=== PATIENT | male | born 1985 | race American Indian/Alaskan Native ===

== ENCOUNTER 2016-05-20 09:46 | Emergency (ER) | payer SELFPAY ==
[2016-05-20 10:00] VITALS: BP 150/113
--- NOTE | 2016-05-20 10:31 | Emergency Department Report ---
Chief Complaint: Chest Pain Stated Complaint: CHEST PAIN/BLURRED VISION/SOB Time Seen by Provider: 05/20/16 10:30 - HPI History of Present Illness: Patient here complaining of chest pain and headache that started this morning.Chest pain feels like somebody's is crushing his chest and headache is achy in the front of his head. Denies any radiation. Pain is located to midsternal.. Patient said he doesn't have any medical problems but he does have family history of high blood pressure. He also complains of blurred vision. He reports some shortness of breath. Eyes any nausea vomiting. Denies any cough. - ROS Review of Systems: All systems are negative unless stated in HPI above. - Exam Vital Signs: Vital Signs 05/20/16 09:57 Temperature 98.4 F Pulse Rate 71 Respiratory 22 Rate Blood Pressure 150/113 O2 Sat by Pulse 100 Oximetry Physical Exam: General: This is a 31 yo male well-nourished well-developed nontoxic in appearance. CV: S1, S2. Regular rate and rhythm. Blood pressure is 150/113 Lungs: Clear to auscultate bilaterally. No rhonchi wheezes or rales. MSE screening note: Focused history and physical exam performed. Due to findings the following was ordered:see mdm ED Medical Decision Making - Medical Decision Making Medical decision making: Patient seen by provider in triage area. Appropriate protocol activated and patient to main ED to be seen by physician. ED Disposition for MSE Condition: Stable
[2016-05-20 10:59] LABS: Basophils % (Auto) 0.4 % (0.0-1.8); Eosinophils % (Auto) 2.2 % (0.0-4.3); Hematocrit 41.1 % (35.5-45.6); Hemoglobin 13.7 gm/dl (11.8-15.2); Mean Corpuscular HGB Conc 33 % (32-34); Mean Corpuscular Hemoglobin 28 pg (28-32); Mean Corpuscular Volume 84 fl (84-94); Platelet Count 163 K/mm3 (140-440); Red Blood Count 4.87 M/mm3 (3.65-5.03); Red Cell Distribution Width 14.9 % (13.2-15.2); White Blood Count 4.2 K/mm3 (4.5-11.0)
[2016-05-20 11:14] LABS: Anion Gap 15 mmol/L; Blood Urea Nitrogen 18 mg/dL (9-20); Calcium 8.9 mg/dL (8.4-10.2); Carbon Dioxide 25 mmol/L (22-30); Chloride 104.9 mmol/L (98-107); Creatine Kinase MB 4.7 ng/mL (0.0-4.0); Glucose 94 mg/dL (75-100); Potassium 4.3 mmol/L (3.6-5.0); Sodium 141 mmol/L (137-145)
[2016-05-20 12:12] LABS: Bilirubin,Urine NEG (Negative); Blood,Urine NEG (Negative); Ketones,Urine NEG (Negative); Leukocyte Esterase,Urine MOD (Negative); Mucus,Urine FEW /HPF; Nitrite,Urine NEG (Negative); Protein,Urine <15 mg/dL mg/dL (Negative); Urobilinogen,Urine < 2.0 mg/dL (<2.0)
--- NOTE | 2016-05-21 01:04 | ED Elopement Review ---
ED Pt Elopement review - Results review Lab results: Laboratory Tests 05/20/16 05/20/16 05/20/16 10:51 10:51 10:51 WBC 4.2 L RBC 4.87 Hgb 13.7 Hct 41.1 MCV 84 MCH 28 MCHC 33 RDW 14.9 Plt Count 163 Lymph % (Auto) 44.1 H [place] % (Auto) 7.5 H Eos % (Auto) 2.2 Baso % (Auto) 0.4 Lymph # 1.9 [place] # 0.3 Eos # 0.1 Baso # 0.0 Seg Neutrophils % 45.8 Seg Neutrophils # 1.9 Sodium 141 Potassium 4.3 Chloride 104.9 Carbon Dioxide 25 Anion Gap 15 BUN 18 Creatinine 0.9 Estimated GFR > 60 BUN/Creatinine Ratio 20.00 Glucose 94 Calcium 8.9 Total Creatine Kinase 416 H CK-MB (CK-2) 4.7 H CK-MB (CK-2) Rel Index 1.1 Troponin T < 0.010 Urine Color Urine Turbidity Urine pH Ur Specific [place] Urine Protein Urine Glucose (UA) Urine Ketones Urine Blood Urine Nitrite Urine Bilirubin Urine Urobilinogen Ur Leukocyte Esterase Urine WBC (Auto) Urine RBC (Auto) U Epithel Cells (Auto) Calcium Oxalate Crystal Urine Mucus 05/20/16 11:21 WBC RBC Hgb Hct MCV MCH MCHC RDW Plt Count Lymph % (Auto) [place] % (Auto) Eos % (Auto) Baso % (Auto) Lymph # [place] # Eos # Baso # Seg Neutrophils % Seg Neutrophils # Sodium Potassium Chloride Carbon Dioxide Anion Gap BUN Creatinine Estimated GFR BUN/Creatinine Ratio Glucose Calcium Total Creatine Kinase CK-MB (CK-2) CK-MB (CK-2) Rel Index Troponin T Urine Color Yellow Urine Turbidity Clear Urine pH 5.0 Ur Specific [place] 1.019 Urine Protein <15 mg/dl Urine Glucose (UA) Neg Urine Ketones Neg Urine Blood Neg Urine Nitrite Neg Urine Bilirubin Neg Urine Urobilinogen < 2.0 Ur Leukocyte Esterase Mod Urine WBC (Auto) 5.0 Urine RBC (Auto) 1.0 U Epithel Cells (Auto) 1.0 Calcium Oxalate Crystal 3+ Urine Mucus Few - Call Back decision Pt Call Back Decision: Call pt to return to ED [facility] (chest pain should be further evaluated)
== END 2016-05-20 11:25 | disposition left against medical advice (07) ==
LOC: ED 09:46
DX: R07.89 Other chest pain (principal); R51 Headache; H53.8 Other visual disturbances; R06.02 Shortness of breath; Z53.21 Procedure and treatment not carried out due to patient leaving prior to being seen by health care provider
CPT/HCPCS: 36415; 80048; 81001; 82550; 82553; 84484; 85025; 93005; 93010

== ENCOUNTER 2017-06-02 07:50 | Emergency (ER) | payer SELFPAY ==
--- NOTE | 2017-06-02 11:25 | Emergency Department Report ---
ED Animal Bite HPI - General Chief Complaint: Animal Bite Stated Complaint: DOG BITE Time Seen by Provider: 06/02/17 11:06 Source: patient Mode of arrival: Ambulatory Limitations: No Limitations - History of Present Illness Initial Comments: Patient is a 32-year-old male who presents to ED complaining of dog bite to the right palm. Patient states around 6:45 AM this morning he was walking to work when a pitbull started chasing him. Patient states that the knee. Bone negative his palm before he jumped onto a car and prevent the dog from attacking him. Patient states that the dog belongs D neighbors and he does not note status of the dog's vaccinations. Patient states his tetanus vaccine has been greater than 10 years ago. Patient states that he did sustain an abrasion to his right palm from the dog knicking him. He denies fevers/chills/nausea/vomiting symptoms the pain MD Complaint: animal bite Right: Hand Animal: dog Animal Control Notified: Yes Mechanism: scratch Associated Symptoms: denies: erythema, discharge from wound, chills, rash, loss of consciousness - Related Data Patient Tetanus UTD: No Previous Rx's Medication Instructions Recorded Last Taken Type Hydrochlorothiazide [HCTZ] 25 mg PO QDAY #30 tablet 08/25/15 Unknown Rx Clindamycin [Clindamycin CAP] 300 mg PO Q8H #21 cap 06/02/17 Unknown Rx Ibuprofen [Motrin] 600 mg PO Q8H PRN #30 tablet 06/02/17 Unknown Rx Sulfamethoxazole/Trimethoprim 1 each PO BID #14 tablet 06/02/17 Unknown Rx [Bactrim DS TAB] Allergies Allergy/AdvReac Type Severity Reaction Status Date / Time Penicillins Allergy Swelling Verified 06/02/17 08:42 ED Review of Systems ROS: Stated complaint: DOG BITE Other details as noted in HPI Constitutional: denies: chills, fever Eyes: denies: eye pain, eye discharge, vision change ENT: denies: ear pain, throat pain Respiratory: denies: cough, shortness of breath, wheezing Cardiovascular: denies: chest pain, palpitations Endocrine: no symptoms reported Gastrointestinal: denies: abdominal pain, nausea, diarrhea Genitourinary: denies: urgency, dysuria Musculoskeletal: denies: back pain, joint swelling, arthralgia Skin: denies: rash, lesions Neurological: denies: headache, weakness, paresthesias Psychiatric: denies: anxiety, depression Hematological/Lymphatic: denies: easy bleeding, easy bruising ED Past Medical Hx - Past Medical History Previous Medical History?: Yes Hx Hypertension: No Hx CVA: No Hx Heart Attack/AMI: No Hx Congestive Heart Failure: No Hx Diabetes: No Hx Deep Vein Thrombosis: No Hx Pulmonary Embolism: No Hx GERD: No Hx Liver Disease: No Hx Renal Disease: No Hx Sickle Cell Disease: No Hx Arthritis: No Hx Headaches / Migraines: No Hx Seizures: No Hx Kidney Stones: No Hx Psychiatric Treatment: No Hx Asthma: No Hx COPD: No Hx Tuberculosis: No Hx Dementia: No Hx HIV: No - Surgical History Hx Coronary Stent: No Hx Open Heart Surgery: No Hx Pacemaker: No Hx Internal Defibrillator: No Hx Cholecystectomy: No Hx Appendectomy: No Hx Breast Surgery: No Additional Surgical History: Bilateral foot surgery - Social History Smoking Status: Never Smoker Substance Use Type: None - Medications Home Medications: Home Medications Medication Instructions Recorded Confirmed Last Taken Type Hydrochlorothiazide [HCTZ] 25 mg PO QDAY #30 tablet 08/25/15 Unknown Rx Clindamycin [Clindamycin CAP] 300 mg PO Q8H #21 cap 06/02/17 Unknown Rx Ibuprofen [Motrin] 600 mg PO Q8H PRN #30 tablet 06/02/17 Unknown Rx Sulfamethoxazole/Trimethoprim 1 each PO BID #14 tablet 06/02/17 Unknown Rx [Bactrim DS TAB] ED Physical Exam - General Limitations: No Limitations General appearance: alert, in no apparent distress - Head Head exam: Present: atraumatic, normocephalic - Eye Eye exam: Present: normal appearance - ENT ENT exam: Present: mucous membranes moist - Neck Neck exam: Present: normal inspection - Respiratory Respiratory exam: Present: normal lung sounds bilaterally. Absent: respiratory distress, wheezes, rales - Cardiovascular Cardiovascular Exam: Present: regular rate, normal rhythm. Absent: systolic murmur, diastolic murmur, rubs, gallop - GI/Abdominal GI/Abdominal exam: Present: soft, normal bowel sounds - Rectal Rectal exam: Present: deferred - Extremities Exam Extremities exam: Present: normal inspection - Back Exam Back exam: Present: normal inspection. Absent: tenderness - Neurological Exam Neurological exam: Present: alert, oriented X3 - Psychiatric Psychiatric exam: Present: normal affect, normal mood - Skin Skin exam: Present: warm, dry, intact, normal color, abrasion (to the right palm ). Absent: rash ED Course Vital Signs 06/02/17 06/02/17 08:44 12:52 Temperature 98.5 F Pulse Rate 63 Respiratory 18 Rate Blood Pressure 145/4 Blood Pressure 138/72 [Left] O2 Sat by Pulse 100 Oximetry Critical care attestation.: If time is entered above; I have spent that time in minutes in the direct care of this critically ill patient, excluding procedure time. ED Disposition Clinical Impression: Dog bite Animal bite of hand Qualifiers: Encounter type: initial encounter Laterality: right Qualified Code(s): S61.451A - Open bite of right hand, initial encounter Disposition: - TO HOME OR SELFCARE Is pt being admited?: No Does the pt Need Aspirin: No Condition: Stable Instructions: Animal Bite (ED) Additional Instructions: Make sure to follow up with the primary care physician as discussed. Take all your medications as you've been prescribed. If you have any worsening symptoms or develop new symptoms please return to ED immediately. Return on day 3, day 7 and day 14 for the rest of your vaccination schedules Prescriptions: Clindamycin [Clindamycin CAP] 300 mg PO Q8H #21 cap Ibuprofen [Motrin] 600 mg PO Q8H PRN #30 tablet PRN Reason: Pain Sulfamethoxazole/Trimethoprim [Bactrim DS TAB] 1 each PO BID #14 tablet Referrals: PRIMARY CARE, [Primary Care Provider] - 3-5 Days [facility] [Outside] - 3-5 Days [facility] [Outside] - 3-5 Days Forms: Accompanied Note, Work/School Release Form(ED) Time of Disposition: 12:34 Medical Decision Making - [facility] 32-year-old male presents with dog bites of the right palm. Patient received rabies vaccine, TD booster as well as RIG globulins. I discussed with the patient winded to return for his next 3 vaccinations. Abrasion were cleaned. Neosporin applied. Band-Aid applied to the abrasion. Patient is sent home on antibiotics for hand pain. Due to patient being allergic to penicillin and he was given Ceftin she is Bactrim and clindamycin. Vital signs normal, patient is in no acute respiratory distress
[2017-06-02] MEDS ORDERED: RABAVERT RABIES VACCINE(PCEC) IM ONE (11:28)
[2017-06-02] MEDS ORDERED: BOOSTRIX IM ONE (11:28)
[2017-06-02] MEDS ORDERED: hyperRAB S/D IM ONE (12:28)
[2017-06-02 12:52] VITALS: BP 138/72
== END 2017-06-02 12:52 | disposition home or self-care (01) ==
LOC: ED 07:50
DX: S61.451A Open bite of right hand, initial encounter (principal); Z88.0 Allergy status to penicillin; W54.0XXA Bitten by dog, initial encounter; Y93.89 Activity, other specified; Y92.89 Other specified places as the place of occurrence of the external cause; Y99.8 Other external cause status
CPT/HCPCS: 90375; 90471; 90472; 90675; 90715; 96372; 99282